=== PATIENT | male | born 1965 | race Caucasian/White ===

== ENCOUNTER 2017-12-28 13:57 | Inpatient (IN) | payer OTHER ==
[~2017-12-28] VITALS: Ht 182.9 cm; Wt 59.8 kg
--- NOTE | ~2017-12-28 | EKG ---
[address] [address] ELECTROCARDIOGRAM REPORT Name: MARY ANN ATWOOD Room #: 246-P ADM IN M.R.#: [id number] Admission: 12/28/17 Attend Phys: Mikayla Massey MD Discharge: Date of : 63 Report #: [id number] THIS REPORT FOR: //name// 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 : 1965 Requested By: Nany Decker Order Number: [id number] MD: Juaquin Ramos Measurements Intervals [place] Rate: 155 P: CO: QRS: 30 QRSD: 90 T: 252 QT: 289 QTc: 465 Interpretive Statements Atrial fibrillation Low voltage, extremity leads Borderline repolarization abnormality Compared to ECG 12/28/2017 14:04:41 Sinus tachycardia no longer present Electronically Signed On 01-01-2018 8:49:13 CDT by Juaquin Ramos [email or web address] <ELECTRONICALLY SIGNED> By: Juaquin Ramos MD, [facility] 01/01/18 0849 1049 1049 Juaquin Ramos MD, [facility] /EPI
--- NOTE | ~2017-12-28 | HC ---
[facility] [place] [address] CONSULTATION Name: MARY ANN ATWOOD Room #: 246- ADM IN M.R.#: [id number] Admission: 12/28/17 Attend Phys: Mikayla Massey MD Discharge: Date of : 63 Report #: [id number] THIS REPORT FOR: //name// CC: Mikayla Massey DATE OF SERVICE: 12/29/2017 INFECTIOUS DISEASE CONSULTATION: ATTENDING PHYSICIAN: Dr. Massey. REASON FOR EVALUATION: The patient with known AIDS. He has constellation of signs and symptoms going on for several weeks including perhaps fevers and now with gram-negative rods associated with blood culture. HISTORY OF PRESENT ILLNESS: Chart reviewed, patient examined. This is a 52-year-old admitted to the Emergency Room with generalized pain and weakness noted onset roughly 3 weeks ago. He describes it as generalized shoulders, back, chest, and particularly the abdomen. He has had some dark tarry stools, nausea, vomiting in addition to dyspnea. He normally has chronic pain issues, found to be profoundly hypoxemic. Hemoglobin was 4.3 with a white count of 1 or 2.5. He received transfusion of packed red cells due to marked distention, tenderness, some mild peritoneal signs. CT imaging was performed which showed cirrhosis, moderate amount of hepatic ascites. Blood cultures now with growth of gram-negative rods, was empirically started on broad-spectrum therapy with piperacillin-tazobactam, vancomycin, and sulfa. He is unable to tell me about any recent viral loads or trend of his CD4 count. He notes he is unable to take antiviral medicines which he attributes to bone marrow suppression. ALLERGIES: None known. MEDICATIONS: Currently include fluconazole, docusate sodium, pantoprazole, ipratropium, fentanyl, insulin, Bactrim, Zosyn. PAST MEDICAL HISTORY: History of HIV, hepatitis C, chronic pain syndrome. SOCIAL HISTORY: Available in chart. FAMILY HISTORY: Available in chart. REVIEW OF SYSTEMS: As above. PHYSICAL EXAMINATION: GENERAL: Moderate to marked distress. He is chronically ill appearing. He has got the features suggestive of chronic liver disease consistent with cirrhosis. NECK: Supple. [facility] [address] [place] [address] CONSULTATION Name: ANGELICMARY ANN SONU Room #: 246-P [facility] IN ..#: [id number] Admission: 12/28/17 Attend Phys: Mikayla Massey MD Discharge: Date of : 63 Report #: [id number] VITAL SIGNS: Temperature 98.5, had some low-grade temperature elevations up to 99.7, pulse 102, respirations 22, blood pressure 122/61. He has mild jaundice. LUNGS: Diminished breath sounds. HEART: Regular. ABDOMEN: Markedly distended. There is some tautness to it. It is quite tender suggesting some peritoneal signs. GENITOURINARY AND RECTAL: Deferred. LABORATORY DATA: ABGs initially pH 7.507, pCO2 of 28.5, pO2 of 31.2, was on 6 L. Chest x-ray: Cardiomegaly with probable mild interstitial pulmonary edema. Hepatic function, AST 130, ALT of 97, total bilirubin of 2.4, albumin 2.3. Total protein of 5.8. Electrolytes: Sodium 133, potassium 3.7, chloride 103, bicarbonate is 21, anion gap of 9, BUN and creatinine 25 and 1.5. CBC: White count of 2.5 initially, H 4.3 and 12.3, platelets of 59 ____ lot of lymphocytes 64% of 2500. CT of the pelvis showed findings compatible with cirrhosis, mild to moderate hepatic abdominal ascites. Lactic acid 3.4. Troponin elevated at 2.42, ferritin at 2046. ASSESSMENT: Gram-negative septicemia in a patient with human immunodeficiency virus. It is difficult to ascertain his status in that standpoint. It is unclear how long he has been off his antivirals. He is certainly at risk for infectious complications. I would be concerned about spontaneous bacterial peritonitis as well. Agree with broad-spectrum antimicrobial therapy including Zosyn, which should give his gram-negative coverage, would favor going ahead and trying to aspirate some of the ascitic fluid for analysis and culture, assumingly this is nothing that may be commonly occurring, certainly a degree of reversibility is not clear, supportive measures. Agree with transfusions. <ELECTRONICALLY SIGNED> By: James Galvan MD 12/30/17 0452 0646 0625 James Galvan MD /nt
--- NOTE | ~2017-12-28 | HC ---
[facility] [place] [address] CONSULTATION Name: MARY ANN ATWOOD Room #: 202-[facility] IN M.R.#: [id number] Admission: 12/28/17 Attend Phys: Mikayla Massey MD Discharge: 01/10/18 Date of : 63 Report #: [id number] THIS REPORT FOR: //name// CC: Mikayla Massey DATE OF SERVICE: 01/02/2018 REASON FOR CONSULTATION: Refractory edema and anasarca. HISTORY OF PRESENT ILLNESS: This 52-year-old gentleman with known hepatitis C, cirrhosis and HIV, presents with E. coli sepsis, apparent spontaneous bacterial peritonitis, anasarca, ascites, generalized fluid overload and reasonably normal renal function. He had a large volume paracentesis yesterday, maintained his hemodynamics fairly well, and we are being asked to see the patient to help with diuresis. Currently, he is on spironolactone. PAST MEDICAL HISTORY: Mostly taken from the old charts. The patient seen in ICU, is rather lethargic, not willing to give a detailed history at the current time. Apparently, he has a past medical history of HIV, hepatitis C, cirrhosis and glucose intolerance. CURRENT MEDICATIONS: Include spironolactone 50 mg daily, fluconazole 100 mg daily, diltiazem drip, fentanyl patch, insulin, IV saline, oxycodone, Protonix 20 mg daily, Zosyn and 3 times weekly Bactrim. FAMILY HISTORY: Noncontributory. REVIEW OF SYSTEMS: GENERAL: Feels poorly. He has diffuse pain, weak. SKIN: He denies skin rashes. SKELETAL: Diffuse arthralgias, myalgias. EYES: Vision okay. ENT: Hearing okay. No mouth sores. ENDOCRINE: Positive for glucose intolerance. RESPIRATORY: Denies shortness of breath. CARDIAC: No chest pain. He has had some palpitation. GASTROINTESTINAL: Appetite has been somewhat poor. GENITOURINARY: No dysuria or known renal stone disease. NEUROLOGIC: Somewhat lethargic and confused. PHYSICAL EXAMINATION: GENERAL: This is a chronically ill-appearing patient, looking older than his stated age, somewhat pale. SKIN: Otherwise unremarkable. SKELETAL: Well developed, well nourished. HEENT: Extraocular movements are full. No scleral icterus. Hearing and vision [address] [address] CONSULTATION Name: MARY ANN ATWOOD SONU Room #: 202-[facility] IN .R.#: [id number] Admission: 12/28/17 Attend Phys: Mikayla Massey MD Discharge: 01/10/18 Date of : 63 Report #: [id number] intact. Mucous membranes dry. NECK: Supple. Neck veins are flat. CHEST: Shows decreased respirations in the bases in supine position. HEART: Regular but distant. ABDOMEN: Tender throughout, slightly distended. EXTREMITIES: Show 1+ peripheral edema, generalized. NEUROLOGIC: Moves all extremities. LABORATORY DATA: Hemoglobin is 8, platelets 57. Sodium 132, potassium 4.5, chloride 105, bicarbonate 21, creatinine 1, BUN 28. ASSESSMENT AND PLAN: 1. Generalized anasarca, multifactorial, but mostly due to his cirrhosis and hemodynamic derangements as well as severe hypoalbuminemia. We will go ahead and add some loop diuretic, increase his spironolactone and see the results. Hopefully, stopping short of provoking any renal shutdown which is always possible in these cases. Prognosis obviously is extremely dismal, certainly would not be a candidate for liver transplant, more or less a palliative type of case. 2. Human immunodeficiency virus. 3. Hepatitis C with cirrhosis. 4. Glucose intolerance. <ELECTRONICALLY SIGNED> By: Renzo Mejia MD 01/14/18 1055 0932 1243 Renzo Mejia MD /nt
--- NOTE | ~2017-12-28 | CRIT ---
[facility] [place] [address] CRITICAL CARE NOTE Name: MARY ANN ATWOOD Room #: 246-P ADM IN M.R.#: [id number] Admission: 12/28/17 Attend Phys: Mikayla Massey MD Discharge: Date of : 63 Report #: [id number] THIS REPORT FOR: //name// CC: Mikayla Massey DATE OF SERVICE: 12/29/2017 Gastrointestinal Consultation SUBJECTIVE: The patient is a very pleasant 52-year-old male who I have been asked to see for further evaluation of his multiple medical problems. Specifically, he has had increasing abdominal distention, constipation, and profound anemia, as well as some black stools on occasion. He reports no hematemesis. He has complicated medical history, listed below. He has had recent rib fracture from a fall. He does report a prior upper endoscopy approximately 3 years ago in [place] without evidence of esophageal varices, although he does carry the diagnosis of cirrhosis, hepatitis C, and HIV. MEDICATIONS: On presentation include fentanyl patch, milk of mag, Colace, fluconazole, albuterol, pantoprazole, insulin, Tylenol, oxycodone, Bactrim. He is currently on Zosyn. MEDICAL HISTORY: Notable for hepatitis C, HIV, chronic pain. Apparently, he has been treated for HIV, uncertain as to whether or not he has been treated for hepatitis C. Denies significant alcohol or tobacco consumption or drug use. REVIEW OF SYSTEMS: Denies head, eyes, ears, nose or throat complaints. Denies chest pain, chest palpitation, chest pressure, cough, shortness of breath, wheezing, genitourinary, musculoskeletal or neuropsychiatric complaints beyond that mentioned above. PHYSICAL EXAMINATION: GENERAL: The patient is afebrile. VITAL SIGNS: Stable. HEENT: Icteric. SKIN: Jaundiced. NECK: No JVD, thyromegaly or bruits. CARDIOVASCULAR: Regular, distant. LUNGS: Clear, distant. ABDOMEN: Distended with significant general discomfort and some peritoneal signs. No stigmata of chronic liver disease. No abnormal masses or bruits. NEUROLOGIC: Deferred. RECTAL: Deferred. PERTINENT LABORATORY DATA: Include on presentation, white count 2.5, hemoglobin 6.8, platelet count 59,000. INR 1.6. Serum chemistry notable for sodium 133, [address] [address] CRITICAL CARE NOTE Name: MARY ANN ATWOOD [place] Room #: [address] [place] [address] IN M.R.#: [id number] Admission: 12/28/17 Attend Phys: Mikayla Massey MD Discharge: Date of : 63 Report #: [id number] BUN 25, creatinine 1.5. Lactate 3.4, calcium 8.3, ferritin 2046, total bilirubin 2.4, direct bilirubin 1.6, AST 130, ALT 97, alkaline phosphatase 93. Troponins 2.3, total protein 5.8, albumin 2.3, lipase normal. IMAGING: Reveals CT abdomen and pelvis with moderate hepatic abdominal pelvic ascites, nodular liver, mild nonspecific distention of the gallbladder with cholelithiasis. ASSESSMENT AND PLAN: In summary, the patient has evidence of hepatitis C and cirrhosis. He has profound anemia, but has not had significant evidence of gross GI bleeding. His anemia is most likely multifactorial. There is verbal report per the patient that 3 years ago, he did not have varices, although it is possible that he has developed them since or he may be an error. He has evidence of tiffanie cirrhosis and possibly spontaneous bacterial peritonitis, for which he is currently being treated. At this point, I would watch him with serial hemoglobins, octreotide until endoscopy on Sunday. If there is evidence of gross bleeding, we will consider upper endoscopy sooner. At some point, he may be a candidate for treatment for hepatitis C. Clearly, he has multiple medical problems, many of which affect the treatment of the other. Thanks for allowing us to see this patient. We will follow concurrently. <ELECTRONICALLY SIGNED> By: Tor Medina MD 12/30/17 1304 1122 0508 Tor Medina MD /nt
--- NOTE | ~2017-12-28 | 2DMMODE ---
[facility] [address] [place] [address] 2 D/M-MODE ECHOCARDIOGRAM Name: MARY ANN ATWOOD SONU Room #: 246-P [facility] IN .R.#: [id number] Admission: 12/28/17 Attend Phys: Mikayla Massey MD Discharge: Date of : 63 Date of Service: 12/29/17 1643 Report #: [id number] THIS REPORT FOR: //name// APPROVED REPORT Study performed: 12/29/2017 09:52:13 EXAM: Comprehensive 2D, Doppler, and color-flow Echocardiogram Patient Location: Bedside Room #: 246 Status: on-call BSA: 2.44 HR: 111 bpm BP: 109/47 mmHg Rhythm: Tachycardia Other Information Study Quality: Adequate Risk Factors: Cardiac Risk Factors: DM Indications COPD Chest Pain Elevated Troponin 2D Dimensions LVEF(%): 58.24 (>50%) IVSd: 14.05 (7-11mm) LVOT Diam: 23.00 (18-24mm) LVDd: 56.47 mm PWd: 14.71 (7-11mm) Ascending Ao: 29.93 (22-36mm) LVDs: 38.87 (25-40mm) Aortic Root: 29.55 mm LV Single Plane 4CH: 60.63 % LV Single Plane 2CH: 50.00 % Avendano's LVEF: 55.31 % Biplane EF: 53.6 % Volumes Left Atrial Volume (Systole) Single Plane 4CH: 105.02 mL Single Plane 2CH: 90.45 mL LA ESV Index: 43.00 mL/m2 Aortic Valve AoV Peak Bill.: 1.75 m/s [facility] [address] [place] [address] 2 D/M-MODE ECHOCARDIOGRAM Name: MARY ANN ATWOOD Room #: 246-P [facility] IN [facility]#: [id number] Admission: 12/28/17 Attend Phys: Mikayla Massey MD Discharge: Date of : 63 Date of Service: 12/29/17 1643 Report #: [id number] Peak Gr.: 12.27 mmHg LVOT Max P.58 mmHg LVOT Max V: 1.18 m/s VERONIKA Vmax: 2.78 cm2 Mitral Valve MV Peak Gr.: 14.76 mmHg MV Mean Gr.: 7.46 mmHg E/A Ratio: 0.9 MV Decel. Time: 182.19 ms MV E Max Bill.: 1.34 m/s MV A Bill.: 1.46 m/s MV Max Bill.: 1.92 m/s MV Mean Bill.: 1.30 m/s MV VTI: 422.54 mm MV PHT: 52.83 ms MVA (PHT): 3.77 cm2 IVRT: 58.82 ms TDI E/Lateral E': 16.75 E/Medial E': 22.33 Medial E' Bill.: 0.06 m/s Lateral E' Bill.: 0.08 m/s Pulmonary Valve PV Peak Bill.: 1.40 m/s PV Peak Gr.: 7.81 mmHg Tricuspid Valve RAP Estimate: 7.00 mmHg Left Ventricle The left ventricle is normal size. There is normal LV segmental wall motion. Mild concentric left ventricular hypertrophy. Left ventricular systolic function is normal. The left ventricular ejection fraction is within the normal range. LVEF is 55-60%. Grade I - abnormal relaxation pattern. Right Ventricle The right ventricle is normal size. The right ventricular systolic function is normal. Atria Left atrium is moderately dilated. Right atrium is dilated. Aortic Valve The Aortic valve is sclerotic. No aortic regurgitation is present. There is no aortic valvular stenosis. [facility] [address] [address] 2 D/M-MODE ECHOCARDIOGRAM Name: MARY ANN ATWOOD Room #: 246-P ADM IN .R.#: [id number] Admission: 12/28/17 Attend Phys: Mikayla Massey MD Discharge: Date of : 63 Date of Service: 12/29/17 1643 Report #: [id number] Mitral Valve There is mitral annular calcification. Trace mitral regurgitation. No evidence of mitral valve stenosis. Tricuspid Valve The tricuspid valve is normal in structure. Trace tricuspid regurgitation. Unable to assess PA pressure. Pulmonic Valve The pulmonary valve is normal in structure. There is no pulmonic valvular regurgitation. Great Vessels The aortic root is normal in size. IVC is normal in size and collapses with >50% inspiration Pericardium There is a trace to small pericardial effusion. <Conclusion> The left ventricle is normal size. Left atrium is moderately dilated. Right atrium is dilated. The Aortic valve is sclerotic. There is mitral annular calcification. Trace mitral regurgitation. Trace tricuspid regurgitation. Unable to assess PA pressure. There is a trace to small pericardial effusion. <ELECTRONICALLY SIGNED> By: Luis Calhoun MD 12/29/17 1643 164 164 Luis Calhoun MD /INF
--- NOTE | ~2017-12-28 | HC ---
[facility] [place] [address] CONSULTATION Name: MARY ANN ATWOOD Room #: 202-P ADM IN M.R.#: [id number] Admission: 12/28/17 Attend Phys: Mikayla Massey MD Discharge: Date of : 63 Report #: [id number] THIS REPORT FOR: //name// CC: Don Thomas MD REFERRING PHYSICIAN: Gianfranco Thomas MD REASON FOR CONSULTATION: Cytopenia, specifically anemia. HISTORY OF PRESENT ILLNESS: The patient is a 52-year-old gentleman originally from [place] who is in the ICU with E. coli sepsis. He was admitted from [facility] with history of longstanding HIV, COPD, diabetes type 2, neuropathy and hepatitis C, was reportedly wheezing over the weekend. His antibiotic was changed from Levaquin to Bactrim and became progressively weaker, was found to be hypoxic and was brought to [place]. He was found to have hemoglobin of 4 with an elevated troponin level. He has been transfused currently about 6 units of blood. It looks like previous to this admission, he had labs outside that showed his hemoglobin back in September and October be in the 12 or 13 range with the platelets of around 112 and here on admission is 4. The platelets have been stable around 57,000. White count has been in the range of 2.5, now around 3.9 with differential on admission of 64% neutrophils, 26 lymphocytes, 9% monos and 0.1% eos. He is also found to have large platelets. He also had some occasional RBC fragments. The patient is fairly tired and not the most reliable historian. He says he may have had some blood issues, maybe about 5 years ago, is not very specific about it. It sounds like he had a transfusion then, but not until this recent admission. It sounds like he is aware that he was having some maybe slight, felt warm at the other facility. He has been very fatigued. His abdomen has become more swollen in the last several months. He is not aware of any blood in his urine or stool. He eats regular meat and potatoes, but not a whole lot of red meat, but does not avoid it. He is not aware that his urine has been any dark or light. He is not aware of any skin rash. He does note that his belly has been big, his elbows were swollen as well as his ankles. PAST MEDICAL HISTORY: Notable for history of HIV, hepatitis C, cirrhosis, diabetes and neuropathy. SOCIAL HISTORY: I think he had been a smoker before. He also did something with ____ outside. I am not quite sure or understand. He is currently disabled. He does have family in the area. [facility] [address] [facility] [place] [address] CONSULTATION Name: MARY ANN ATWOOD Room #: 202-P ADM IN M.R.#: [id number] Admission: 12/28/17 Attend Phys: Mikayla Massey MD Discharge: Date of : 63 Report #: [id number] MEDICATIONS: At this time in the hospital currently include furosemide 40 b.i.d., spironolactone 50 b.i.d., dicyclomine 10 mg before meals, lactulose 20 g daily, ceftriaxone 1 g daily, diltiazem on IV drip, metoprolol 5 mg q. 6 p.r.n., oxycodone 5 mg q. 6 p.r.n., docusate as needed, fluconazole 100 mg daily, pantoprazole 20 daily, ipratropium and albuterol 3 mL respiratory therapy q.i.d., fentanyl 25 mcg patch every 72 hours, insulin on a sliding scale. Bactrim on Sunday, Sunday and Sunday. PHYSICAL EXAMINATION: GENERAL: The patient appears his stated age. He is a fairly ill, middle-aged male in the ICU. VITAL SIGNS: Height is 6 feet, which is 182.9 cm. Weight is 277 pounds or 126 kilos. Recent blood pressure is 108/67 with pulse 107 and respirations 17. He is afebrile at 97.6. HEENT: His face is symmetrical. His mood, he is a little bit lethargic and slow to answer questions, though he gets a little bit frustrated. Oropharynx without any thrush or leukoplakia. ABDOMEN: Obese. Slightly tender. LUNGS: Do have some slight rhonchi that clear with cough. LYMPHATICS: No enlarged lymph nodes in the supraclavicular, cervical, axillary or inguinal region. ABDOMEN: Like I mentioned is a little bit distended. EXTREMITIES: Have some trace edema. LABORATORY: Here is notable for BUN of 28 and creatinine of 1.1. AST 34. Total bili is 3.7 with the direct bili of 2.7. ALT 30. Albumin 1.6. Ammonia was 7. Iron levels pending. INR was 1.6, aPTT 34.3. White count 3.9 and hemoglobin 9.1. Once again on admission, it was around 4.3. On admission, his platelet count was 59. Did have 1+ schistocyte on his lab. RDW 19.8 after transfusion, was 19.4 before. Absolute retic count is low at 7%. Peripheral smear review is pending. Ferritin was 2046. Note that was given after checked after several units of blood. TSH is pending. Folate 17.7. Vitamin B12 1068. Influenza A and B and parainfluenza and RSVs are negative. UA was negative for blood. ____ test was positive. Bilirubin 1+. ASSESSMENT AND PLAN: 1. Anemia occurring since September with slightly dark blood, probably multifactorial. There was probably also very hypoproliferative with an erythropoietin level of 3000 and absolute retic count of 6 though with the platelet count and white count low, but not appropriate. It seemed to be affecting red cells more than usual. Talked with pharmacist to see how long he has been on zidovudine. This could be contributing. I will also do a peripheral smear review. We will also check a TSH and iron panel. I do not think the patient is hemolyzed. We will also check an LDH. Haptoglobin would be probably low given his poor nutrition state. Transfuse as needed, may need a bone marrow. [address] [address] CONSULTATION Name: MARY ANN ATWOOD Room #: 202-P ADM IN M.R.#: [id number] Admission: 12/28/17 Attend Phys: Mikayla Massey MD Discharge: Date of : 63 Report #: [id number] 2. Also note that GI is considering EGD. 3. History of thrombocytopenia, not actively bleeding. Coags little off, but we will continue monitoring. Check mostly above test. 4. Escherichia coli sepsis. Continue with antibiotics and supportive measures. 5. Human immunodeficiency virus. Defer to others. 6. Hepatitis C with cirrhosis and ascites. Defer to GI. 7. Diabetes. Defer management to others. 8. History of atrial fibrillation. Defer to others. 9. Ascites, on spironolactone and Lasix. Defer to others. 10. Chronic pain, on fentanyl patch and other meds. We will follow with you. <ELECTRONICALLY SIGNED> By: Alirio Tubbs MD 01/07/18 0751 0919 1704 Alirio Tubbs MD /nt
--- NOTE | ~2017-12-28 | EKG ---
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 : 1965 Requested By: Max Levine Order Number: [id number] MD: Juaquin Ramos Measurements Intervals Jack Rate: 118 P: ND: QRS: 33 QRSD: 81 T: 50 QT: 440 QTc: 617 Interpretive Statements Sinus tachycardia Anteroseptal infarct, age indeterminate Prolonged QT interval Nonspecific ST and T wave abnormality No previous ECG available for comparison Electronically Signed On 12-30-2017 16:28:10 CDT by Juaquin Ramos [email or web address] <ELECTRONICALLY SIGNED> By: Juaquin Ramos MD, [facility] 12/30/17 1628 D: [id number] Juaquin Ramos MD, [facility]ACC /EPI
[2017-12-28 14:24] VITALS: BP 121/62
[2017-12-28 14:24] LABS: BE(vivo) -1.1 mmol/L (-2 to +3); HCO3 22.1 mmol/L (22.0-26.0); PCO2 28.5 mmHg (35.0-45.0); PO2 31.2 mmHg (80.0-100.0); pH 7.507 (7.360-7.450); sO2 67.6 % (92.0-98.0)
[2017-12-28 15:01] LABS: RBC 1.13 mil/uL (4.50-6.00)
[2017-12-28 15:03] LABS: MCH 38.1 pg (26.0-34.0); MCHC 35.1 g/dL (28.0-37.0); MCV 108.7 fL (80.0-100.0); PLATELET COUNT 59 thou/uL (150-400); RDW 19.4 % (10.5-14.5); WBC 2.5 thou/uL (4.0-11.0)
[2017-12-28 15:07] LABS: HEMATOCRIT 12.3 % (42.0-52.0); HEMOGLOBIN 4.3 gm/dL (14.0-18.0)
[2017-12-28 15:10] LABS: CALCIUM 8.3 mg/dL (8.5-10.1); CREATININE 1.5 mg/dL (0.7-1.3); POTASSIUM 3.7 mmol/L (3.5-5.1)
[2017-12-28 15:21] LABS: TROPONIN-I 1.99 ng/mL (<0.06)
[2017-12-28 15:29] LABS: ALBUMIN 2.3 g/dL (3.4-5.0); DIRECT BILIRUBIN 1.6 mg/dL (<0.1-0.3); TOTAL BILIRUBIN 2.4 mg/dL (<0.1-1.0); TOTAL PROTEIN 5.8 g/dL (6.4-8.2)
[2017-12-28 15:30] LABS: INR 1.6; PROTIME 16.3 Seconds (9.3-11.4)
[2017-12-28] MEDS ORDERED: FENTANYL PATCH75 MCG TRANSDERM (15:41)
[2017-12-28] MEDS ORDERED: GERI-LANTA LIQ355 ML PER TUBE (15:43)
[2017-12-28 15:51] LABS: ABSOLUTE NEUTROPHILS 0.8 thou/uL (1.4-8.2); HYPOCHROMASIA 1+; MICROCYTES 2+; SCHISTOCYTES 1+
[2017-12-28 16:34] VITALS: BP 103/46; BP 103/52; BP 112/60
[2017-12-28 16:48] VITALS: BP 121/62
[2017-12-28 18:47] VITALS: BP 112/60
[2017-12-28 21:23] LABS: HEMATOCRIT 14.9 % (42.0-52.0); HEMOGLOBIN 5.3 gm/dL (14.0-18.0)
[2017-12-28 22:15] VITALS: BP 122/61; BP 123/75
[2017-12-28 22:30] VITALS: BP 122/61
[2017-12-29] VITALS (73 sets, daily range): BP systolic 88–130; BP diastolic 47–102
[2017-12-29 02:26] LABS: HEMOGLOBIN 6.2 gm/dL (14.0-18.0)
[2017-12-29 02:27] LABS: HEMATOCRIT 17.8 % (42.0-52.0)
[2017-12-29 03:07] LABS: FOLIC ACID 17.7 ng/mL (8.6-58.9)
[2017-12-29 09:00] LABS: HEMOGLOBIN 6.8 gm/dL (14.0-18.0)
[2017-12-29 09:01] LABS: HEMATOCRIT 18.8 % (42.0-52.0)
[2017-12-29 13:11] LABS: URINE BILIRUBIN 1+ (Negative); URINE BLOOD NEGATIVE (Negative); URINE CLARITY CLEAR; URINE COLOR YELLOW; URINE GLUCOSE-RANDOM* NEGATIVE (Negative); URINE KETONES NEGATIVE (Negative); URINE LEUKOCYTES-REFLEX TRACE (Negative); URINE NITRITE-REFLEX NEGATIVE (Negative); URINE PROTEIN (DIPSTICK) TRACE (Negative); URINE UROBILINOGEN 0.2 E.U./dl (0.2-1.0)
[2017-12-29 13:13] LABS: ICTOTEST (BILI CONFIRMATORY) Positive (Negative)
[2017-12-29 19:23] LABS: HEMATOCRIT 19.8 % (42.0-52.0)
[2017-12-30] VITALS (87 sets, daily range): BP systolic 93–122; BP diastolic 52–88
[2017-12-30 00:17] LABS: HEMOGLOBIN 7.4 gm/dL (14.0-18.0)
[2017-12-30 03:52] LABS: CALCIUM 8.3 mg/dL (8.5-10.1); CREATININE 1.4 mg/dL (0.7-1.3); POTASSIUM 4.4 mmol/L (3.5-5.1); TOTAL BILIRUBIN 4.7 mg/dL (<0.1-1.0); TOTAL PROTEIN 5.8 g/dL (6.4-8.2)
[2017-12-30 05:25] LABS: ABSOLUTE NEUTROPHILS 3.8 thou/uL (1.4-8.2); BASOPHILS 0.9 % (0.0-2.0); EOSINOPHILS 0.1 % (0.0-3.0); HEMATOCRIT 21.3 % (42.0-52.0); HEMOGLOBIN 7.6 gm/dL (14.0-18.0); LYMPHOCYTES 26.1 % (24.0-44.0); MCH 34.1 pg (26.0-34.0); MCHC 35.5 g/dL (28.0-37.0); MONOCYTES 9.4 % (1.0-8.0); PLATELET COUNT 60 thou/uL (150-400); POLYS 63.5 % (36.0-66.0); RBC 2.22 mil/uL (4.50-6.00); RDW 20.7 % (10.5-14.5)
[2017-12-30 05:26] LABS: MCV 96.1 fL (80.0-100.0)
[2017-12-30 06:02] LABS: ANISOCYTOSIS 2+; LARGE PLATELETS OCCASIONAL; OVALOCYTES FEW; PLATELET ESTIMATE DECREASED
[2017-12-30] MEDS ORDERED: DURAGESIC25 MCG/HR TRANSDERM (18:24)
[2017-12-31] VITALS (89 sets, daily range): BP systolic 88–136; BP diastolic 50–101
[2017-12-31 04:06] LABS: CALCIUM 7.9 mg/dL (8.5-10.1); CREATININE 1.1 mg/dL (0.7-1.3); POTASSIUM 4.3 mmol/L (3.5-5.1)
[2017-12-31 04:08] LABS: MCV 96.6 fL (80.0-100.0)
[2017-12-31 04:10] LABS: MCH 34.3 pg (26.0-34.0); MCHC 35.5 g/dL (28.0-37.0); RBC 2.04 mil/uL (4.50-6.00); RDW 20.8 % (10.5-14.5); WBC 5.9 thou/uL (4.0-11.0)
[2017-12-31 04:16] LABS: HEMATOCRIT 19.7 % (42.0-52.0)
[2017-12-31 05:31] LABS: BE(vivo) -3.8 mmol/L (-2 to +3); HCO3 20.2 mmol/L (22.0-26.0); PO2 76.7 mmHg (80.0-100.0); pH 7.419 (7.360-7.450); sO2 95.7 % (92.0-98.0)
[2017-12-31 09:39] LABS: HEMATOCRIT 21.9 % (42.0-52.0); HEMOGLOBIN 7.7 gm/dL (14.0-18.0)
[2017-12-31 09:50] LABS: APTT 34.3 Seconds (24.5-32.8); INR 1.6; PROTIME 16.1 Seconds (9.3-11.4)
[2017-12-31 18:56] LABS: HEMATOCRIT 24.5 % (42.0-52.0); HEMOGLOBIN 8.6 gm/dL (14.0-18.0)
[2018-01-01] VITALS (124 sets, daily range): BP systolic 93–132; BP diastolic 53–86
[2018-01-01 05:03] LABS: HEMATOCRIT 24.4 % (42.0-52.0); HEMOGLOBIN 8.6 gm/dL (14.0-18.0); MCH 33.8 pg (26.0-34.0); MCHC 35.2 g/dL (28.0-37.0); RBC 2.55 mil/uL (4.50-6.00); WBC 7.4 thou/uL (4.0-11.0)
[2018-01-01 05:11] LABS: INR 1.5; PROTIME 15.6 Seconds (9.3-11.4)
[2018-01-01 05:14] LABS: ALBUMIN 1.7 g/dL (3.4-5.0); CREATININE 1.1 mg/dL (0.7-1.3); POTASSIUM 4.7 mmol/L (3.5-5.1); TOTAL BILIRUBIN 6.2 mg/dL (<0.1-1.0)
[2018-01-01 05:29] LABS: TOTAL PROTEIN 5.9 g/dL (6.4-8.2)
[2018-01-01 13:10] LABS: CLARITY CLOUDY; COLOR YELLOW; SOURCE PERITONEAL FLUID; TOTAL VOLUME 55 mL
[2018-01-01 15:03] LABS: BF NUCLEATED CELLS 10667; BF RBC 4814
[2018-01-01 15:07] LABS: BF NEUTROPHILS 70
[2018-01-01 15:16] LABS: BF MACROPHAGE 13
[2018-01-02] VITALS (18 sets, daily range): BP systolic 110–126; BP diastolic 59–78
[2018-01-02 00:09] LABS: ADENOVIRUS Negative (Negative); INFLUENZA A Negative (Negative); INFLUENZA B Negative (Negative); METAPNEUMOVIRUS Negative (Negative); PARAINFLUENZA 1 Negative (Negative); PARAINFLUENZA 2 Negative (Negative); PARAINFLUENZA 3 Negative (Negative); RHINOVIRUS Negative (Negative); RSV A Negative (Negative); RSV B Negative (Negative)
[2018-01-02 05:13] LABS: HEMATOCRIT 22.8 % (42.0-52.0); MCH 33.5 pg (26.0-34.0); MCV 95.6 fL (80.0-100.0); RBC 2.38 mil/uL (4.50-6.00); RDW 19.8 % (10.5-14.5); WBC 3.9 thou/uL (4.0-11.0)
[2018-01-02 05:25] LABS: ALBUMIN 1.5 g/dL (3.4-5.0); CALCIUM 8.1 mg/dL (8.5-10.1); INR 1.6; POTASSIUM 4.5 mmol/L (3.5-5.1); PROTIME 16.6 Seconds (9.3-11.4); TOTAL BILIRUBIN 4.4 mg/dL (<0.1-1.0); TOTAL PROTEIN 4.9 g/dL (6.4-8.2)
[2018-01-02 12:10] LABS: BODY FLUID ALBUMIN 0.8 g/dL (()); BODY FLUID GLUCOSE 122 mg/dL (()); BODY FLUID LDH 1254 IU/L (()); BODY FLUID PROTEIN 1.7 g/dL (())
[2018-01-02 14:50] LABS: SOURCE PERITONEAL
[2018-01-02 14:59] LABS: GLYCOHEMOGLOBIN (HGB A1C) 7.2
[2018-01-03] VITALS (25 sets, daily range): BP systolic 106–133; BP diastolic 62–78
[2018-01-03 04:16] LABS: HEMATOCRIT 25.9 % (42.0-52.0); HEMOGLOBIN 9.1 gm/dL (14.0-18.0)
[2018-01-03 04:36] LABS: ALBUMIN 1.6 g/dL (3.4-5.0); CALCIUM 8.8 mg/dL (8.5-10.1); CREATININE 1.1 mg/dL (0.7-1.3); PHOSPHORUS 3.7 mg/dL (2.5-4.9); POTASSIUM 4.1 mmol/L (3.5-5.1)
[2018-01-03 04:39] LABS: ALBUMIN 1.6 g/dL (3.4-5.0); DIRECT BILIRUBIN 2.7 mg/dL (<0.1-0.3); TOTAL BILIRUBIN 3.7 mg/dL (<0.1-1.0); TOTAL PROTEIN 5.5 g/dL (6.4-8.2)
[2018-01-03 05:16] LABS: INR 1.6
[2018-01-03 09:12] LABS: ABSOLUTE RETIC COUNT 0.0069 10^6/uL; OBSERVED RETIC COUNT 0.26 % (0.6-2.6)
[2018-01-03 09:43] LABS: % SATURATION 105 % (20-39); IRON 121 ug/dL (65-175); TIBC 115 ug/dL (250-450)
[2018-01-03] MEDS ORDERED: HYDROCODONE-AP1 EAC6 PO (13:10)
[2018-01-03] MEDS ORDERED: HUMALOG100 UNIT/1 SUBQ (13:12)
[2018-01-03] MEDS ORDERED: COLACE100 MG PO (13:13)
[2018-01-03] MEDS ORDERED: LANTUS100 UNIT/M SUBQ (13:13)
[2018-01-03] MEDS ORDERED: LINZESS145 MCG PO (13:13)
[2018-01-03] MEDS ORDERED: METFORMIN HCL500 MG PO (13:14)
[2018-01-03] MEDS ORDERED: DIFLUCAN200 MG PO (13:14)
[2018-01-03] MEDS ORDERED: GLIPIZIDE ER5 MG PO (13:14)
[2018-01-03] MEDS ORDERED: PREZCOBIX 8001 EACH PO (13:15)
[2018-01-03] MEDS ORDERED: BACTRIM DS TAB1 EACH PO (13:15)
[2018-01-03] MEDS ORDERED: OMEPRAZOLE20 MG PO (13:16)
[2018-01-03] MEDS ORDERED: THEREMS-M1 EACH PO (13:16)
[2018-01-03] MEDS ORDERED: MUCINEX600 MG PO (13:16)
[2018-01-03] MEDS ORDERED: ZIDOVUDINE300 MG PO (13:17)
[2018-01-03] MEDS ORDERED: DUONEB 2.5-0.5 M3 ML INH (13:17)
[2018-01-03] MEDS ORDERED: XANAX 0.25 MG0.25 MG PO (13:17)
[2018-01-03] MEDS ORDERED: TYLENOL325 MG PO (13:18)
[2018-01-03] MEDS ORDERED: ONDANSETRON HCL4 M2 PO (13:19)
[2018-01-03] MEDS ORDERED: PHENERGAN 25 MG25 M1 PO (13:19)
[2018-01-03] MEDS ORDERED: MILK OF MA400 MG/5 M PO (13:20)
[2018-01-04] VITALS (87 sets, daily range): BP systolic 88–128; BP diastolic 55–96
[2018-01-04 04:47] LABS: ABSOLUTE NEUTROPHILS 9.1 thou/uL (1.4-8.2); BASOPHILS 0.3 % (0.0-2.0); EOSINOPHILS 0.1 % (0.0-3.0); HEMATOCRIT 25.8 % (42.0-52.0); HEMOGLOBIN 8.8 gm/dL (14.0-18.0); LYMPHOCYTES 10.8 % (24.0-44.0); MCH 32.7 pg (26.0-34.0); MCHC 34.1 g/dL (28.0-37.0); MCV 95.7 fL (80.0-100.0); MONOCYTES 11.8 % (1.0-8.0); PLATELET COUNT 100 thou/uL (150-400); RDW 20.3 % (10.5-14.5); WBC 11.8 thou/uL (4.0-11.0)
[2018-01-04 05:00] LABS: ALBUMIN 1.5 g/dL (3.4-5.0); CALCIUM 8.4 mg/dL (8.5-10.1); CREATININE 1.3 mg/dL (0.7-1.3); PHOSPHORUS 4.2 mg/dL (2.5-4.9); POTASSIUM 4.3 mmol/L (3.5-5.1); TOTAL BILIRUBIN 3.2 mg/dL (<0.1-1.0); TOTAL PROTEIN 5.4 g/dL (6.4-8.2)
[2018-01-05] VITALS (20 sets, daily range): BP systolic 102–127; BP diastolic 54–80
[2018-01-05 05:14] LABS: HEMATOCRIT 25.8 % (42.0-52.0); HEMOGLOBIN 8.9 gm/dL (14.0-18.0); MCH 32.6 pg (26.0-34.0); MCHC 34.4 g/dL (28.0-37.0); MCV 94.7 fL (80.0-100.0); RBC 2.73 mil/uL (4.50-6.00); WBC 17.1 thou/uL (4.0-11.0)
[2018-01-05 05:27] LABS: ALBUMIN 1.5 g/dL (3.4-5.0); CALCIUM 8.4 mg/dL (8.5-10.1); CREATININE 1.5 mg/dL (0.7-1.3); POTASSIUM 4.3 mmol/L (3.5-5.1); TOTAL BILIRUBIN 3.5 mg/dL (<0.1-1.0); TOTAL PROTEIN 5.3 g/dL (6.4-8.2)
[2018-01-06 00:16] VITALS: BP 114/57
[2018-01-06 04:43] VITALS: BP 126/54
[2018-01-06 06:02] LABS: HEMATOCRIT 26.1 % (42.0-52.0); HEMOGLOBIN 9.3 gm/dL (14.0-18.0); MCH 33.4 pg (26.0-34.0); MCHC 35.4 g/dL (28.0-37.0); MCV 94.4 fL (80.0-100.0); RBC 2.77 mil/uL (4.50-6.00); RDW 19.4 % (10.5-14.5); WBC 19.2 thou/uL (4.0-11.0)
[2018-01-06 06:10] LABS: CALCIUM 8.7 mg/dL (8.5-10.1); CREATININE 1.9 mg/dL (0.7-1.3); POTASSIUM 4.3 mmol/L (3.5-5.1)
[2018-01-06 08:30] VITALS: BP 112/68
[2018-01-06 12:01] VITALS: BP 108/56
[2018-01-06 16:55] VITALS: BP 121/59
[2018-01-06 19:51] VITALS: BP 121/53
[2018-01-07 03:51] VITALS: BP 94/53
[2018-01-07 05:03] LABS: HEMATOCRIT 27.1 % (42.0-52.0); HEMOGLOBIN 9.2 gm/dL (14.0-18.0); MCH 32.7 pg (26.0-34.0); MCHC 33.9 g/dL (28.0-37.0); MCV 96.6 fL (80.0-100.0); RBC 2.81 mil/uL (4.50-6.00); RDW 18.8 % (10.5-14.5); WBC 17.1 thou/uL (4.0-11.0)
[2018-01-07 05:15] LABS: ALBUMIN 1.5 g/dL (3.4-5.0); CALCIUM 8.7 mg/dL (8.5-10.1); CREATININE 2.4 mg/dL (0.7-1.3); POTASSIUM 4.8 mmol/L (3.5-5.1); TOTAL BILIRUBIN 2.5 mg/dL (<0.1-1.0); TOTAL PROTEIN 5.6 g/dL (6.4-8.2)
[2018-01-07 05:16] LABS: INR 1.6; PROTIME 16.7 Seconds (9.3-11.4)
[2018-01-07 09:00] VITALS: BP 144/124
[2018-01-07 19:41] VITALS: BP 113/53
[2018-01-07 23:11] VITALS: BP 113/48
[2018-01-08 04:46] VITALS: BP 113/51
[2018-01-08 07:20] VITALS: BP 117/55
[2018-01-08 09:54] LABS: HEMATOCRIT 25.1 % (42.0-52.0); HEMOGLOBIN 8.7 gm/dL (14.0-18.0); MCH 33.7 pg (26.0-34.0); MCHC 34.7 g/dL (28.0-37.0); MCV 97.3 fL (80.0-100.0); RBC 2.58 mil/uL (4.50-6.00); RDW 18.6 % (10.5-14.5); WBC 16.4 thou/uL (4.0-11.0)
[2018-01-08 10:09] LABS: ALBUMIN 1.5 g/dL (3.4-5.0); CALCIUM 7.1 mg/dL (8.5-10.1); POTASSIUM 4.2 mmol/L (3.5-5.1); TOTAL BILIRUBIN 2.2 mg/dL (<0.1-1.0); TOTAL PROTEIN 4.6 g/dL (6.4-8.2)
[2018-01-08 11:17] VITALS: BP 110/46
[2018-01-08 15:09] VITALS: BP 92/75
[2018-01-08 16:41] LABS: BE(vivo) -9.4 mmol/L (-2 to +3); HCO3 14.2 mmol/L (22.0-26.0); PCO2 24.1 mmHg (35.0-45.0); PO2 76.1 mmHg (80.0-100.0); pH 7.388 (7.360-7.450); sO2 95.4 % (92.0-98.0)
[2018-01-08 19:22] VITALS: BP 106/48
[2018-01-09 04:36] VITALS: BP 112/53
[2018-01-09 05:52] LABS: ALBUMIN 2.3 g/dL (3.4-5.0); CALCIUM 8.1 mg/dL (8.5-10.1); CREATININE 3.7 mg/dL (0.7-1.3); PHOSPHORUS 7.8 mg/dL (2.5-4.9)
[2018-01-09 07:11] VITALS: BP 98/47
[2018-01-09 07:13] LABS: BE(vivo) -8.4 mmol/L (-2 to +3); HCO3 14.8 mmol/L (22.0-26.0); PO2 71.8 mmHg (80.0-100.0); sO2 95.1 % (92.0-98.0)
[2018-01-09 07:14] LABS: PCO2 23.3 mmHg (35.0-45.0)
[2018-01-09 08:08] LABS: URINE BILIRUBIN NEGATIVE (Negative); URINE BLOOD 3+ (Negative); URINE CLARITY CLEAR; URINE COLOR YELLOW; URINE GLUCOSE-RANDOM* NEGATIVE (Negative); URINE KETONES NEGATIVE (Negative); URINE LEUKOCYTES NEGATIVE (Negative); URINE NITRITE NEGATIVE (Negative); URINE PROTEIN (DIPSTICK) NEGATIVE (Negative)
[2018-01-09 08:26] LABS: BACTERIA None Seen /HPF (None Seen); CASTS None Seen /LPF (None Seen); MUCUS 0-3 Light strn/LPF (None Seen); SQUAMOUS 0-3 Few /LPF (0-3); URINE CREATININE-RANDOM* 83.7 mg/dL; URINE RBC 3-10 Few /HPF (0-2); URINE SODIUM-RANDOM* < 5.0 mmol/L; URINE WBC 0-5 Rare /HPF (0-5)
[2018-01-09 08:27] LABS: CRYSTALS None Seen /LPF (None Seen)
[2018-01-09 11:27] VITALS: BP 120/63
[2018-01-09 11:37] LABS: HEMATOCRIT 23.5 % (42.0-52.0); HEMOGLOBIN 8.3 gm/dL (14.0-18.0); MCH 34.2 pg (26.0-34.0); MCHC 35.1 g/dL (28.0-37.0); MCV 97.4 fL (80.0-100.0); PLATELET COUNT 100 thou/uL (150-400); RBC 2.41 mil/uL (4.50-6.00); RDW 20.5 % (10.5-14.5); WBC 11.7 thou/uL (4.0-11.0)
[2018-01-09 11:49] LABS: INR 1.7; PROTIME 16.8 Seconds (9.3-11.4)
[2018-01-09 11:54] LABS: ABSOLUTE NEUTROPHILS 10.4 thou/uL (1.4-8.2); METAMYELOCYTES 1 %; PLATELET ESTIMATE NORMAL
[2018-01-09 12:04] LABS: ALBUMIN 2.2 g/dL (3.4-5.0); DIRECT BILIRUBIN 1.7 mg/dL (<0.1-0.3); TOTAL BILIRUBIN 2.5 mg/dL (<0.1-1.0); TOTAL PROTEIN 5.2 g/dL (6.4-8.2)
[2018-01-09 15:30] VITALS: BP 112/52
[2018-01-09 19:50] VITALS: BP 113/59
[2018-01-10 04:00] VITALS: BP 130/57
[2018-01-10 05:39] LABS: ALBUMIN 1.9 g/dL (3.4-5.0); CALCIUM 7.7 mg/dL (8.5-10.1); CREATININE 4.3 mg/dL (0.7-1.3); PHOSPHORUS 7.3 mg/dL (2.5-4.9)
[2018-01-10 05:46] LABS: POTASSIUM 6.1 mmol/L (3.5-5.1)
[2018-01-10 05:52] LABS: HEMATOCRIT 25.3 % (42.0-52.0); HEMOGLOBIN 8.7 gm/dL (14.0-18.0); MCH 34.2 pg (26.0-34.0); MCHC 34.4 g/dL (28.0-37.0); MCV 99.4 fL (80.0-100.0); RBC 2.55 mil/uL (4.50-6.00); RDW 19.8 % (10.5-14.5); WBC 9.8 thou/uL (4.0-11.0)
[2018-01-10 08:00] VITALS: BP 117/58
[2018-01-10] MEDS ORDERED: MORPHINE 44 MG/1 ML IV PUSH (19:01)
[2018-01-10] MEDS ORDERED: DURAGESIC25 MCG/HR TRANSDERM (19:02)
[2018-01-10] MEDS ORDERED: LORAZEPAM 22 MG/1 ML IM (19:03)
== END 2018-01-10 19:39 | disposition hospice, inpatient (51) | DRG 371 ==
LOC: ER 13:57 → EROBS 16:39 → ICU 16:39 → 2N 01-05 18:21
PROVIDERS: Hospitalist; Internal Medicine; Internal Medicine Gastroenterology; Internal Medicine Hematology & Oncology; Internal Medicine Nephrology; Internal Medicine Pulmonary Disease; Nurse Practitioner; Physician Assistant; Specialist
DX: K65.2 Spontaneous bacterial peritonitis (principal); B20 Human immunodeficiency virus [HIV] disease; J18.9 Pneumonia, unspecified organism; J96.01 Acute respiratory failure with hypoxia; G93.40 Encephalopathy, unspecified; K76.7 Hepatorenal syndrome; I24.8 Other forms of acute ischemic heart disease; R18.8 Other ascites; J98.11 Atelectasis; E44.0 Moderate protein-calorie malnutrition; E87.1 Hypo-osmolality and hyponatremia; I48.92 Unspecified atrial flutter; Z68.1 Body mass index [BMI] 19.9 or less, adult; J44.0 Chronic obstructive pulmonary disease with (acute) lower respiratory infection; D64.9 Anemia, unspecified; K74.60 Unspecified cirrhosis of liver; G89.4 Chronic pain syndrome; B19.20 Unspecified viral hepatitis C without hepatic coma; E11.40 Type 2 diabetes mellitus with diabetic neuropathy, unspecified; K72.90 Hepatic failure, unspecified without coma; D69.6 Thrombocytopenia, unspecified; I95.9 Hypotension, unspecified; I48.0 Paroxysmal atrial fibrillation; E87.70 Fluid overload, unspecified; Z79.899 Other long term (current) drug therapy
CPT/HCPCS: 10078; 27000; 27001